=== PATIENT | female | born 1965 | race Caucasian/White ===

== ENCOUNTER → 2018-11-01 | Outpatient (CLI) | payer BC ==
[~2018-11-01] MED LIST: IRBE300T15 PO
== END | disposition home or self-care (01) ==
LOC: LAB 10:02
PROVIDERS: ATTEND Internal Medicine
DX: I10 Essential (primary) hypertension (principal)
CPT/HCPCS: 80053; 80061; 81001; 84439; 84443; 85025

== ENCOUNTER → 2018-12-06 | Outpatient (CLI) | payer BC | END | disposition home or self-care (01) | LOC: LAB 11:06 | PROVIDERS: ATTEND Internal Medicine | DX: N39.0 Urinary tract infection, site not specified (principal) | CPT/HCPCS: 87086 ==

== ENCOUNTER → 2018-12-20 | Outpatient (CLI) | payer BC ==
[2018-12-21 18:37] LABS: PTH CALCIUM 8.6 mg/dL (8.6-10.4)
[2018-12-22 08:31] LABS: PTH INTACT 58 pg/mL (14-64)
== END | disposition home or self-care (01) ==
LOC: LAB 14:05
PROVIDERS: ATTEND Internal Medicine
DX: E04.1 Nontoxic single thyroid nodule (principal)
CPT/HCPCS: 82310; 83970; 84439; 84443; 84481; 86800

== ENCOUNTER → 2018-12-29 | Outpatient (CLI) | payer BC | END | disposition home or self-care (01) | LOC: LAB 07:42 | PROVIDERS: ATTEND Internal Medicine | DX: Z01.818 Encounter for other preprocedural examination (principal); E04.1 Nontoxic single thyroid nodule | CPT/HCPCS: 80048; 85025; 85610; 85730 ==

== ENCOUNTER → 2019-01-11 | Outpatient (CLI) | payer BC | END | disposition home or self-care (01) | LOC: C/S 15:01 | PROVIDERS: ATTEND Internal Medicine | DX: R63.4 Abnormal weight loss (principal) | CPT/HCPCS: 71046; 74177 ==

== ENCOUNTER → 2019-01-11 | Outpatient (CLI) | payer BC | END | disposition home or self-care (01) | LOC: LAB 07:18 | PROVIDERS: ATTEND Internal Medicine | DX: R63.4 Abnormal weight loss (principal) | CPT/HCPCS: 80053; 85025 ==

== ENCOUNTER → 2019-01-12 | Outpatient (CLI) | payer BC ==
[~2019-01-12] MED LIST changes: +LIDOCAINE 1% (MPF) 5 ML VIAL ONE
[2019-01-12 10:50] VITALS: BP 148/81; PULSE 65; RESP 18
[2019-01-12 11:15] VITALS: BP 152/82; PULSE 59; RESP 17
== END | disposition home or self-care (01) ==
LOC: U/S 09:12
PROVIDERS: ATTEND Internal Medicine
DX: E04.1 Nontoxic single thyroid nodule (principal)
CPT/HCPCS: 88104

== ENCOUNTER → 2019-01-12 | Outpatient (CLI) | payer BC ==
[~2019-01-12] MED LIST changes: +IOHEXOL 300MG/ML 150 ML BTL ONE; -LIDOCAINE 1% (MPF) 5 ML VIAL ONE; +SOD CHLORIDE 0.9% 100 ML ONE
== END | disposition home or self-care (01) ==
LOC: C/S 09:02
PROVIDERS: ATTEND Internal Medicine
DX: R63.4 Abnormal weight loss (principal); R94.5 Abnormal results of liver function studies
CPT/HCPCS: Q9967

== ENCOUNTER → 2019-01-23 | Outpatient (CLI) | payer BC ==
[~2019-01-23] MED LIST changes: -IOHEXOL 300MG/ML 150 ML BTL ONE; -SOD CHLORIDE 0.9% 100 ML ONE
== END | disposition home or self-care (01) ==
LOC: LAB 06:34 → EEVIPCON 06:34
PROVIDERS: ATTEND Internal Medicine Gastroenterology
DX: K74.60 Unspecified cirrhosis of liver (principal)
CPT/HCPCS: 85610; 85730; 86255; 86803; 87340

== ENCOUNTER → 2019-02-02 | Outpatient (CLI) | payer BC ==
--- NOTE | 2019-02-02 15:53 | RADRPT ---
Vent Rate: 61 bpm RR Interval: 984 msec MN Interval: 157 msec QRS Duration: 98 msec QT Interval: 422 msec QTC Interval: 425 msec P-R-T [place]: 78 - 38 - 23 degrees Sinus rhythm Electronically Signed By: Germain Hess
== END | disposition home or self-care (01) ==
LOC: LAB 12:19
PROVIDERS: ATTEND Internal Medicine
DX: Z01.818 Encounter for other preprocedural examination (principal); I10 Essential (primary) hypertension; K74.60 Unspecified cirrhosis of liver
CPT/HCPCS: 71045; 80053; 81001; 85025; 85610; 85730; 87086; 93005

== ENCOUNTER 2019-02-07 10:28 | Day surgery (SDC) | payer BC ==
[2019-02-06 12:27] VITALS: BMI 31.9
--- NOTE | 2019-02-06 15:04 | PREOPHP ---
DATE OF ADMISSION: 02/07/2019 CHIEF COMPLAINT: The patient is here for preop for D and C. HISTORY OF PRESENT ILLNESS: The patient is a 53-year-old female with cellular atypia on endometrial biopsy performed by Dr. Dawson to undergo D and C on 02/07/2019. The patient also in the near future will need hysterectomy and removal of likely dermoid. The patient has been feeling okay. No pelvic pain. No urinary symptoms, vaginal discharge, fever, chills or night sweats, chest pain, shortness of breath, cough, abdominal pain, nausea or vomiting. The patient has had also recent endocrine eval uation for enlarged thyroid. Biopsy is negative for malignancy. She has also seen GI for her cirrho sis and abnormal abdominal CT scan. After I discussed with Dr. Ruiz, felt most likely source is s econdary to hepatic steatosis. The patient has had no bleeding problems and no other complaints. PAST MEDICAL HISTORY: Hypertension, fatty liver with cirrhosis, thyromegaly and adnexal mass. PAST SURGICAL HISTORY: D and C. MEDICATIONS: Irbesartan 300 mg daily. ALLERGIES: LISINOPRIL. SOCIAL HISTORY: The patient denies any tobacco use. Occasional alcohol use. She is a [employer] employee. She is . FAMILY HISTORY: The patient's father at 58 from stomach cancer. Mother with diabetes. Four br others and 3 sisters who are living. Son is in a motor vehicle accident. Son and 2 daughte rs who are living. REVIEW OF SYSTEMS: GENERAL: The patient denies any fever, chills, night sweats. She has had some intentional weight lo ss. Otherwise, no other general complaints. HEENT: The patient denies any headache, congestion, rhinorrhea, sore throat, vision change, other EN T complaints. RESPIRATORY: The patient denies any cough, wheeze, shortness of breath or other respiratory complain ts. CARDIOVASCULAR: The patient denies any chest pains, palpitations, dizziness or other cardiovascular symptoms. GASTROINTESTINAL: The patient denies any abdominal pain, nausea, vomiting, bright red blood per rect um, melena or other GI complaints. GENITOURINARY: The patient denies any dysuria, frequency or other complaints. NEUROLOGIC: The patient denies any numbness, tingling, weakness, other neurologic symptoms. PHYSICAL EXAMINATION: VITAL SIGNS: Blood pressure 143/96. The patient had not taken her blood pressure medication. Pulse of 81, respirations 12. GENERAL APPEARANCE: The patient is an obese female in no acute distress. She appears nontoxic. HEENT: Normocephalic, atraumatic. Sclerae are anicteric. Pupils are equal, round, reactive to ligh t. Extraocular movements are intact. Oropharynx is clear. TMs are clear. NECK: Supple. No adenopathy, no bruits. LUNGS: Clear to auscultation. CARDIAC: Regular rate and rhythm. ABDOMEN: Bowel sounds are present. Abdomen is soft, nontender, nondistended. There is no CVAT. EXTREMITIES: Without cyanosis, clubbing or edema. NEUROLOGIC: The patient is alert and oriented x3 with no focal neurologic findings. IMPRESSION: 1. Abnormal endometrial biopsy. 2. Adnexal mass. 3. Cirrhosis of liver. 4. Hypertension. PLAN: Preop labs, CBC, CMP, PT, PTT, UA and culture if indicated, EKG, chest x-ray. If above are ok ay, the patient is okay for surgery. I discussed with Dr. Dawson and Dr. Ruiz. Continue her curr ent treatment. Followup to be arranged. ADDENDUM: On 02/06/2019, data were reviewed. Chest x-ray shows no acute disease. EKG: Sinus rhyth m with no acute changes. Labs are notable for AST of 106, ALT 74, alkaline phosphatase 266. Platele ts are 136,000. INR is 1.1, PTT 33.4. UA: 1+ blood, 3+ leukocyte esterase, 19 white cells. Cultur e shows 40,000 to 50,000 E. coli, 50,000 to 60,000 mixed gram-positive organisms. The patient has be en started on ciprofloxacin. The patient is medically stable to proceed with her proposed procedure. Dictated By: GRAZYNA JOHN MD MN/EDUARDO Conf#: [id number] DID#: [id number] CC: YANET DAWSON MD;*EndCC*
[2019-02-07] VITALS (16 sets, daily range): BP systolic 81–155; BP diastolic 43–80; PULSE 64–78; RESP 14–18; Ht 157.5 cm; Wt 77.1 kg
[~2019-02-07] VITALS: Ht 157.5 cm; Wt 77.1 kg
--- NOTE | 2019-02-07 09:48 | HP ---
Date/Time of Note Date/Time of Note DATE: 02/07/19 TIME: 09:36 Assessment/Plan VTE Prophylaxis SCD contraindicated: low risk/ambulating Pharmacological prophylaxis: NA/contraindicated (ambulatin, outpatient) Pharm contraindication: low risk/ambulating Lines/Catheters IV [facility] Peripheral IV Central line still needed: No Urinary Cath still in place: No Assessment/Plan Assessment/Plan A: Atypical complex endometrial hyperplasia. Hypertension. P: Dilitation with fractional sharp curettage. HPI/ROS Admit Date/Time Admit Date/Time February 07, 2019 Hx of Present Illness 53 y.o. menopausal since age 44 and never on hormone replacement therapy was found to have atypical complex endometrial hyperplasia on office endometrial biopsy done when the uterine lining was found to be thickened on a CT scan. The CT scan was done as the pt had lost 40# recently albeit due to great effort on her part. She was also found to have a 9 cm probable ovarian dermoid cyst on one of her ovaries. She will be having a hysterectomy with bilateral salpingoophorectomy to follow soon but the procedure today is to ensure that she does not have uterine cancer, as best as can tell, prior to surgery. She has never had any postmenopausal bleeding. ROS Constitutional: no complaints ENT: no complaints Respiratory: no complaints Cardiovascular: no complaints Gastrointestinal: no complaints Genitourinary: no complaints Musculoskeletal: no complaints Neurologic: no complaints Psychological: no complaints, nl mood/affect PMH/Family/Social Past Medical History Medical History: hypertension Coded Allergies: shrimp (Verified Allergy, Unknown, SWELLING, 02/06/19) Past Surgical History Bilateral tubal ligation. Family History Significant Family History: cancer (father;stomach), diabetes (mother, older sister), hypertension (mother) Social History Alcohol Use: none Smoking Status: Never smoker Drug Use: none Exam/Review of Systems Vital Signs Vitals BP 142/84 Exam Constitutional: alert, oriented, well developed Psych: no complaints, nl mood/affect Respiratory: normal air movement Cardiovascular: regular rate and rhythm, nl pulses Gastrointestinal: soft, nl liver, spleen, non-tender Genitourinary - Female: nl adnexae, nl external genitalia Neurological: nl mental status, nl speech, nl strength YANET DAWSON MD February 07, 2019 09:46
[2019-02-07] MEDS ORDERED: IRBE300T15 PO (10:46)
[2019-02-07] MEDS ORDERED: CIPR500T4 PO (10:47)
[2019-02-07] MEDS: LACTATED RINGER'S 1,000 ML IV SCH ×2 (11:30→13:40)
--- NOTE | 2019-02-07 12:45 | PREAC ---
Date/Time of Note Date/Time of Note DATE: 02/07/19 TIME: 12:44 Anesthesia Eval and Record Evaluation Time Pre-Procedure Interview DATE: 02/07/19 TIME: 12:44 Age 53 Sex female NPO: 8 hrs Preoperative diagnosis endometrial hyperplesia Planned procedure d&c Past Medical History Past Medical History: Includes Cardio: HTN Surgery & Anesthesia Issues No known issue Meds Anticoagulation: No Beta Martin within 24 hr: No Reason Beta Martin not given: Pt. not on B-Martin Reported Medications Ciprofloxacin Hcl* (Ciprofloxacin Hcl*) 500 Mg Tablet, 500 MG PO BID, #14 TAB STARTED 02-06-19 FOR 5 DAYS 02/07/19 Irbesartan* (Irbesartan*) 300 Mg Tablet, 300 MG PO DAILY, TAB 02/07/19 Discontinued Reported Medications Irbesartan* (Irbesartan*) 300 Mg Tablet, 300 MG PO DAILY 09/27/13 Current Medications Lactated Ringer's 1,000 ml @ 125 mls/hr Q8H IV Last administered on 02/07/19at 11:30; Admin Dose 125 MLS/HR; Start 02/07/19 at 09:30 Meds reviewed: Yes Allergies Coded Allergies: Penicillins (Verified Allergy, Unknown, 02/07/19) shrimp (Verified Allergy, Unknown, SWELLING, 02/07/19) Allergies Reviewed: Yes Labs/Studies Labs Reviewed: Reviewed by anesthesiologist test: N/A Pre-procedure Exam Last vitals Vital Signs Date Temp Pulse Resp B/P (MAP) Pulse Ox O2 O2 Flow FiO2 Time Delivery Rate 02/07/19 97.4 64 16 155/80 98 Room Air 10:31 (105) Airway: Adequate mouth opening, Adequate thyromental dist Mallampati: Mallampati IV Teeth: Normal Lung: Normal Heart: Normal ASA Physical Status ASA physical status: 2 Emergency: None Pre-operative Attestations Prior to commencing anesthesia and surgery, the patient was re-evaluated, there was verification of: *The patient's identity *The results of appropriate recent lab work and preoperative vital signs *The above evaluation not changing prior to induction *Anesthetic plan, risk benefits, alternative and complications discussed with patient/family; questions answered; patient/family understands, accepts and wishes to proceed. LE IZQUIERDO DO February 07, 2019 12:45
[2019-02-07] MEDS ORDERED: MIDAZOLAM 1 MG/ML 2 ML INJ ONE (12:56)
[2019-02-07] MEDS ORDERED: DESFLURANE 15 MIN ONE (13:00)
[2019-02-07] MEDS ORDERED: CEFAZOLIN 1 GM INJ ONE (13:00)
[2019-02-07] MEDS ORDERED: ONDANSETRON 4 MG INJ IV PRN (13:00)
[2019-02-07] MEDS ORDERED: HYDROmorphONE 1 MG/5 ML IV SYRINGE IV PRN ×3 (13:00)
[2019-02-07] MEDS ORDERED: OXYCODONE/ACETAMINOPHEN (5/325) TAB PO PRN (13:00)
[2019-02-07] MEDS ORDERED: PROPOFOL 20 ML ONE ×2 (13:01→13:20)
[2019-02-07] MEDS ORDERED: FENTAnyl 50 MCG/ML VIAL ONE (13:02)
[2019-02-07] MEDS ORDERED: METOCLOPRAMIDE 10 MG INJ ONE (13:02)
[2019-02-07] MEDS ORDERED: ONDANSETRON 4 MG INJ ONE (13:02)
[2019-02-07] MEDS ORDERED: KETOROLAC 30 MG INJ ONE (13:15)
[2019-02-07] MEDS ORDERED: SUCCINYLCHOLINE CHLORIDE 100 MG/5 ML SYG IV ONE (13:24)
--- NOTE | 2019-02-07 13:54 | PD.PPDC ---
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
--- NOTE | 2019-02-07 14:05 | OPR ---
Date/Time of Note Date/Time of Note DATE: 02/07/19 TIME: 13:56 Operative Report Procedure Date: February 07, 2019 Preoperative Diagnosis Atypical complex endometrial hyperplasia. Postoperative Diagnosis Same Operation/Procedure Performed Dilatation with a fractional curettage. Surgeon see signature line Supervisor Inspection Room none Anesthesia Type: general Anesthesiologist: RAEGAN FERGUSON MD Estimated Blood Loss: minimal Transfusion none Specimen ECC and endometrial curettings. Grafts/Implants none Complications none Pt Condition Post Procedure: stable Disposition: PACU Procedure Description Pt was brought to the OR, placed on the OR table and was placed under anesthesia. Her legs were brought up into Usman stirrups and she was prepped and draped in the usual sterile fashion. A weighted speculum was placed and the cervix was grasped with a tenaculum. An ECC was then obtained and the specimen placed on a Telfa pad. The uterus was then sounded to 9 cm. The cervix was dilated and a uterine curette was then used to scrape all of the sidewalls and the uterine fundus. That specimen was placed separately onto another Telfa pad. The tenaculum was then removed. Pressure was applied for hemostasis, the vault was cleaned, the speculum was removed and the procedure was terminated. The pt tolerated the procedure well. She was awakened from anesthesia and transferred to the recovery room. YANET DAWSON MD February 07, 2019 14:05
--- NOTE | 2019-02-08 07:42 | PAC ---
Date/Time of Note Date/Time of Note DATE: 02/08/19 TIME: 07:41 Post-Anesthesia Notes Post-Anesthesia Note Last documented vital signs Vital Signs Date Temp Pulse Resp B/P (MAP) Pulse Ox O2 O2 Flow FiO2 Time Delivery Rate 02/07/19 97.2 68 18 109/68 97 14:47 (82) 02/07/19 Room Air 14:41 02/07/19 8.0 13:46 Activity: WNL Respiratory function: WNL Cardiovascular function: WNL Mental status: Baseline Pain reasonably controlled: Yes Hydration appropriate: Yes Nausea/Vomiting absent: No RAEGAN FERGUSON MD February 08, 2019 07:42
== END 2019-02-07 15:27 | disposition home or self-care (01) ==
LOC: SDS 10:28
PROVIDERS: ATTEND Obstetrics & Gynecology
DX: C54.1 Malignant neoplasm of endometrium (principal); I10 Essential (primary) hypertension
CPT/HCPCS: 58120; 88305; J0690; J1885; J2250; J2405; J2765; J3010

== ENCOUNTER → 2019-02-21 | Outpatient (CLI) | payer BC ==
[~2019-02-21] MED LIST changes: +CIPR500T4 PO
== END | disposition home or self-care (01) ==
LOC: LAB 11:41
PROVIDERS: ATTEND Internal Medicine Hepatology
DX: K74.60 Unspecified cirrhosis of liver (principal)
CPT/HCPCS: 80053; 81003; 82105; 82390; 83540; 85025; 85610; 86038; 86255; 86704; 86706; 86708

== ENCOUNTER → 2019-03-07 | Outpatient (CLI) | payer BC | END | disposition home or self-care (01) | LOC: LAB 07:37 | PROVIDERS: ATTEND Internal Medicine Cardiovascular Disease | DX: Z01.818 Encounter for other preprocedural examination (principal); I10 Essential (primary) hypertension; R94.5 Abnormal results of liver function studies; R01.1 Cardiac murmur, unspecified; E66.3 Overweight | CPT/HCPCS: 80061; 80076 ==

== ENCOUNTER 2019-03-08 06:00 | Day surgery (SDC) | payer BC ==
[~2019-03-08] VITALS: Ht 157.5 cm; Wt 75.1 kg
[2019-03-08 06:47] VITALS: BP 121/73; PULSE 59; RESP 16
[2019-03-08 07:04] VITALS: Ht 157.5 cm; Wt 75.1 kg
[2019-03-08] MEDS ORDERED: MIDAZOLAM 1 MG/ML 2 ML INJ ONE ×2 (08:22)
[2019-03-08] MEDS ORDERED: FENTAnyl 50 MCG/ML VIAL ONE (08:23)
[2019-03-08 08:35] VITALS: BP 111/60; PULSE 64; RESP 14
== END 2019-03-08 11:53 | disposition home or self-care (01) ==
LOC: GIL 06:00
PROVIDERS: ATTEND Internal Medicine Gastroenterology
DX: I85.00 Esophageal varices without bleeding (principal); K29.70 Gastritis, unspecified, without bleeding; I86.4 Gastric varices
CPT/HCPCS: 43235; J2250; J3010

== ENCOUNTER → 2019-03-16 | Outpatient (CLI) | payer BC ==
[~2019-03-16] MED LIST changes: -CIPR500T4 PO
== END | disposition home or self-care (01) ==
LOC: LAB 09:11
PROVIDERS: ATTEND Obstetrics & Gynecology Gynecologic Oncology
DX: C54.1 Malignant neoplasm of endometrium (principal)
CPT/HCPCS: 86304

== ENCOUNTER → 2019-04-04 | Outpatient (CLI) | payer BC | END | disposition home or self-care (01) | LOC: LAB 12:21 | PROVIDERS: ATTEND Internal Medicine | DX: Z01.818 Encounter for other preprocedural examination (principal); K74.60 Unspecified cirrhosis of liver; I10 Essential (primary) hypertension; N28.89 Other specified disorders of kidney and ureter | CPT/HCPCS: 80053; 81001; 85025; 85610; 85730; 87086 ==

== ENCOUNTER → 2019-04-25 | Outpatient (CLI) | payer BC | END | disposition home or self-care (01) | LOC: LAB 08:55 | PROVIDERS: ATTEND Internal Medicine | DX: I10 Essential (primary) hypertension (principal) | CPT/HCPCS: 80053; 81001; 85025; 87086 ==